=== PATIENT | male | born 1965 | race Two or more races ===

== ENCOUNTER 2018-08-09 15:15 | Emergency (ER) | payer OTHER ==
[2018-08-09 15:24] VITALS: TEMP 98.2; BMI 28.7
[2018-08-09] MEDS ORDERED: KETOROLAC TROMETHAMINE 30 MG/1 ML VIAL IM ONE (15:45)
[2018-08-09] MEDS ORDERED: KETOROLAC TROMETHAMINE 30 MG/1 ML VIAL ONE (15:47)
--- NOTE | 2018-08-09 16:05 | PDOC ---
History of Present Illness - General Chief Complaint: Pain, Acute Stated Complaint: RIGHT KNEE PAIN Time Seen by Provider: 08/09/18 15:20 - History of Present Illness Initial Comments: 08/09/18 16:00 The patient is a 53 year old male with a significant past medical history of GOUT and HTN who presents to the ED with 3 days of nonradiating right knee pain and swelling. Pt states that he has had multiple similar episodes in the past, consistent with his gout flares. Pt denies F/C. Denies any significant redness to the knee. The patient states he went to [facility] ED yesterday for his knee pain, got a toradol shot and percocet, and discharged home on colchicine but no pain medications. Pt states that today, his pain worsened, prompting him to come to the ER. Pt denies any recent falls or trauma. No numbness/weakness in the leg. Past History - Past Medical History Allergies/Adverse Reactions: Allergies Allergy/AdvReac Type Severity Reaction Status Date / Time No Known Allergies Allergy Verified 08/09/18 15:16 Home Medications: Ambulatory Orders Colchicine [Colcrys -] 0.6 mg PO BID PRN #10 tablet 06/29/18 Indomethacin 50 mg PO BID PRN #20 capsule 06/29/18 COPD: No HTN: Yes Hypercholesterolemia: Yes Other medical history: GOUT - Suicide/Smoking/Psychosocial Hx Smoking History: Never smoked Hx Alcohol Use: No Drug/Substance Use Hx: No Substance Use Type: None Review of Systems - Review of Systems Comments:: 08/09/18 16:01 "GENERAL/CONSTITUTIONAL: No fever/chill. No weakness. HEAD, EYES, EARS, NOSE AND THROAT: No change in vision. No ear pain or discharge. No sore throat. CARDIOVASCULAR: No chest pain, no shortness of breath, no loss of consciousness RESPIRATORY: No cough, wheezing, or hemoptysis. GASTROINTESTINAL: No nausea, vomiting, diarrhea or constipation. GENITOURINARY: No dysuria, frequency, or change in urination. MUSCULOSKELETAL: + right knee pain and swelling. No neck or back pain. SKIN: No rash NEUROLOGIC: No vertigo, no change in strength/sensation. ENDOCRINE: No increased thirst. No abnormal weight change. HEMATOLOGIC/LYMPHATIC: No anemia, easy bleeding, or history of blood clots. ALLERGIC/IMMUNOLOGIC: No hives or skin allergy. " *Physical Exam - Vital Signs Last Vital Signs Temp Pulse Resp BP Pulse Ox 98.2 F 85 18 167/110 H 99 08/09/18 15:16 08/09/18 15:16 08/09/18 15:16 08/09/18 15:16 08/09/18 15:16 - Physical Exam Comments: 08/09/18 16:02 GENERAL: Awake, alert, and fully oriented, in no acute distress. HEAD: No signs of trauma EYES: PERRLA, EOMI, sclera anicteric, conjunctiva clear ENT: Auricles normal inspection, hearing grossly normal, nares patent, oropharynx clear without exudates. Moist mucosa NECK: Nontender, no stepoffs, Normal ROM, supple, no lymphadenopathy, JVD, or masses LUNGS: Breath sounds equal, clear to auscultation bilaterally. No wheezes, and no crackles HEART: Regular rate and rhythm, normal S1 and S2, no murmurs, rubs or gallops ABDOMEN: Soft, nontender, normoactive bowel sounds. No guarding, no rebound. No masses EXTREMITIES: + R knee with mild effusion, pain with active ROM, no bony tenderness or deformity, No clubbing or cyanosis. No cords, erythema, or tenderness NEUROLOGICAL: Cranial nerves II through XII intact. 5/5 strength and sensation in all extremities, Normal speech, normal gait, normal cerebellar function SKIN: Warm, Dry, normal turgor, no rashes or lesions noted. Medical Decision Making - Medical Decision Making 08/09/18 16:02 53 M with R knee pain consistent with gout flare, presenting to ED for pain control. Pt with no evidence of septic arthritis. Afebrile with no erythema or warmth of the joint. I recommended to pt arthrocentesis for comfort and to r/o infectious process. However, pt declines, stating that this feels like his typical gout flares. - Pain control - F/u rheumatology Pt noted to be hypertensive in ED. Pt denies CP/SOB/headache. Admits to being non-compliant with his BP meds. No s/s hypertensive emergency. Pt is well appearing, Clinically stable for DC at this time. I discussed the physical exam findings, ancillary test results and final diagnoses with the patient. I answered all of the patient's questions. The patient was satisfied with the care received and felt comfortable with the discharge plan and treatment plan. The patient agrees to follow up with the primary care physician within 24-72 hours. *DC/Admit/Observation/Transfer Diagnosis at time of Disposition: Gout - Discharge Dispostion Disposition: HOME Condition at time of disposition: Stable - Referrals Referrals: Alisia Benson MD [Staff Physician] - - Patient Instructions Printed Discharge Instructions: DI for Gout Additional Instructions: Continue taking the indomethacin for your gout. If you have severe pain, you can take one percocet as needed every 6 hours. If you experience any worsening pain, swelling, redness, fevers, or any other concerning symptoms, return to the ER immediately. Otherwise, follow up with a nurse advocate to have your gout further treated. Call the number provided to make an appointment. You also need to have your blood pressure re-checked by your primary doctor, as it was slightly elevated today. Uncontrolled blood pressure can eventually lead to kidney disease, heart disease, other serious illness, disability, or even . - Post Discharge Activity - Attestations Physician Attestion: 08/09/18 16:08 I, Dr. Sotero Gramajo MD, attest that this document has been prepared under my direction and personally reviewed by me in its entirety. I further attest, that it accurately reflects all work, treatment, procedures and medical decision -making performed by me.
[2018-08-09 16:17] VITALS: BP 148/101; PULSE 73
== END 2018-08-09 16:17 | disposition home or self-care (01) ==
LOC: FER 15:15
PROC: 3E0233Z Introduction of Anti-inflammatory into Muscle, Percutaneous Approach (ICD-10-PCS; principal; 2018-08-09)
DX: M10.9 Gout, unspecified (principal); I10 Essential (primary) hypertension
CPT/HCPCS: 96372; 99281-25

== ENCOUNTER 2021-03-30 18:05 | Emergency (ER) | payer OTHER ==
[2021-03-30 18:23] VITALS: BP 150/97; PULSE 93; TEMP 98.9; BMI 29.4
[2021-03-30] MEDS ORDERED: KETOROLAC TROMETHAMINE 30 MG/1 ML VIAL IVPUSH ONE (18:26)
[2021-03-30] MEDS ORDERED: predniSONE 20 MG TABLET (UD) PO ONE (18:30)
[2021-03-30] MEDS ORDERED: KETOROLAC TROMETHAMINE 30 MG/1 ML VIAL ONE (18:34)
[2021-03-30] MEDS ORDERED: predniSONE 20 MG TABLET (UD) ONE ×2 (18:35→18:37)
== END 2021-03-30 18:50 | disposition home or self-care (01) ==
LOC: FER 18:05
PROC: 3E0333Z Introduction of Anti-inflammatory into Peripheral Vein, Percutaneous Approach (ICD-10-PCS; principal; 2021-03-30)
DX: M25.561 Pain in right knee (principal); M10.061 Idiopathic gout, right knee
CPT/HCPCS: 99284-25

== ENCOUNTER 2021-05-03 02:24 | Emergency (ER) | payer OTHER ==
[2021-05-03 02:34] VITALS: BP 169/104; PULSE 102; TEMP 99.8; BMI 31.0
[2021-05-03] MEDS ORDERED: DEXAMETHASONE SOD PHOSPHATE 10 MG/1 ML VIAL IM ONE (02:51)
[2021-05-03] MEDS ORDERED: DEXAMETHASONE SOD PHOSPHATE 10 MG/1 ML VIAL ONE (02:56)
== END 2021-05-03 03:21 | disposition home or self-care (01) ==
LOC: FER 02:24
PROC: 3E0233Z Introduction of Anti-inflammatory into Muscle, Percutaneous Approach (ICD-10-PCS; principal; 2021-05-03)
DX: M10.032 Idiopathic gout, left wrist (principal)
CPT/HCPCS: 99283-25; J1100

== ENCOUNTER 2021-08-16 12:31 | Emergency (ER) | payer OTHER ==
[2021-08-16 12:42] VITALS: BP 152/96; PULSE 110; TEMP 100.1; BMI 25.0
[2021-08-16] MEDS ORDERED: KETOROLAC TROMETHAMINE 30 MG/1 ML VIAL IM ONE (13:04)
[2021-08-16] MEDS ORDERED: predniSONE 20 MG TABLET (UD) PO ONE (13:06)
[2021-08-16] MEDS ORDERED: KETOROLAC TROMETHAMINE 30 MG/1 ML VIAL ONE (13:11)
[2021-08-16] MEDS ORDERED: predniSONE 20 MG TABLET (UD) ONE (13:11)
== END 2021-08-16 13:45 | disposition home or self-care (01) ==
LOC: FER 12:31
PROC: 3E023GC Introduction of Other Therapeutic Substance into Muscle, Percutaneous Approach (ICD-10-PCS; principal; 2021-08-16)
DX: M10.061 Idiopathic gout, right knee (principal)
CPT/HCPCS: 99284-25

== ENCOUNTER 2022-01-30 21:45 | Emergency (ER) | payer OTHER ==
[2022-01-30 21:57] VITALS: PULSE 82; TEMP 98.8; BMI 31.0
[2022-01-30] MEDS ORDERED: KETOROLAC TROMETHAMINE 60 MG/2 ML VIAL IM ONE (22:28)
[2022-01-30] MEDS ORDERED: KETOROLAC TROMETHAMINE 60 MG/2 ML VIAL ONE (22:30)
[2022-01-30 22:37] VITALS: BP 172/89
== END 2022-01-30 22:37 | disposition home or self-care (01) ==
LOC: FER 21:45
PROC: 3E0233Z Introduction of Anti-inflammatory into Muscle, Percutaneous Approach (ICD-10-PCS; principal; 2022-01-30)
DX: M10.9 Gout, unspecified (principal)
CPT/HCPCS: 99284-25

== ENCOUNTER 2023-12-05 19:58 | Emergency (ER) | payer OTHER ==
[2023-12-05 20:10] VITALS: RESP 18; BMI 31.0
[2023-12-05] MEDS ORDERED: MAG HYDROX/AL HYDROX/SIMETH 30 ML UNIT-DOSE CUP ONE (22:01)
[2023-12-05] MEDS ORDERED: FAMOTIDINE 20 MG/50 ML IVPB 20 MG/50 ML MG IVPB ONE (22:01)
[2023-12-05] MEDS ORDERED: ACETAMINOPHEN INJECTION 100 ML IVPB ONE (22:01)
[2023-12-05] MEDS: FAMOTIDINE 20 MG/50 ML IVPB 20 MG/50 ML MG IVPB ONE (22:24)
[2023-12-05] MEDS: ACETAMINOPHEN 1000 MG/100 ML BAG IVPB ONE (22:24)
[2023-12-05] MEDS: MAG HYDROX/AL HYDROX/SIMETH 30 ML UNIT-DOSE CUP PO ONE (22:24)
[2023-12-05] MEDS: SODIUM CHLORIDE 0.9% 500 ML INFUS.BAG IV ONE (22:24)
[2023-12-05 22:29] LABS: BASO % 0.3 % (0-2.0); EOS % 0.9 % (0-4.5); HEMATOCRIT 44.1 % (35.4-49); HEMOGLOBIN 15.8 GM/dL (11.7-16.9); LYMPH % 41.6 % (8-40); MCH 32.2 pg (25.7-33.7); MCHC 35.8 g/dl (32.0-35.9); MEAN CELL VOLUME 89.9 fl (80-96); MEAN PLT VOLUME 7.8 fl (7.5-11.1); NEUT % 49.2 % (42.8-82.8); PLATELET COUNT 233 10^3/uL (134-434); RBC 4.91 M/mm3 (4.00-5.60); RDW 13.1 % (11.9-15.9)
[2023-12-05 22:46] LABS: POTASSIUM 3.6 mmol/L (3.5-5.1)
[2023-12-05 22:48] LABS: BLOOD UREA NITROGEN 24.1 mg/dL (7-18)
[2023-12-05 22:49] LABS: CALCIUM 9.5 mg/dL (8.5-10.1)
[2023-12-05 22:51] LABS: CREATININE 1.2 mg/dL (0.55-1.3)
[2023-12-05 22:53] LABS: BILIRUBIN,TOTAL 0.6 mg/dL (0.2-1); TOT PROT 8.2 g/dl (6.4-8.2)
[2023-12-06 01:35] VITALS: BP 142/88; PULSE 89; TEMP 98.3
== END 2023-12-06 01:34 | disposition home or self-care (01) ==
LOC: JER 19:58
PROC: 3E033GC Introduction of Other Therapeutic Substance into Peripheral Vein, Percutaneous Approach (ICD-10-PCS; principal; 2023-12-05)
PROC: 3E030NZ Introduction of Analgesics, Hypnotics, Sedatives into Peripheral Vein, Open Approach (ICD-10-PCS; 2023-12-05)
DX: R10.816 Epigastric abdominal tenderness (principal); R11.2 Nausea with vomiting, unspecified; R00.0 Tachycardia, unspecified; K52.9 Noninfective gastroenteritis and colitis, unspecified; Z20.822 Contact with and (suspected) exposure to COVID-19
CPT/HCPCS: 0241U-QW; 36415; 71045-TC-FY; 71046-TC-FY; 74177-TC; 80053; 83690; 85025; 93005; 93010; 99285-25; J0131; Q9967

== ENCOUNTER 2024-03-24 07:36 | Day surgery (SDC) | payer OTHER ==
[2024-03-17 15:42] VITALS: BMI 30.4
[2024-03-24 08:53] VITALS: TEMP 97
[2024-03-24 09:14] VITALS: RESP 18
[2024-03-24 09:15] VITALS: BP 130/78; PULSE 70
== END 2024-03-24 09:35 | disposition home or self-care (01) ==
LOC: FASU-ENDO 07:36
PROVIDERS: ATTEND Internal Medicine Gastroenterology
PROC: 0DB98ZX Excision of Duodenum, Via Natural or Artificial Opening Endoscopic, Diagnostic (ICD-10-PCS; 2024-03-24)
PROC: 0DB68ZX Excision of Stomach, Via Natural or Artificial Opening Endoscopic, Diagnostic (ICD-10-PCS; 2024-03-24)
PROC: 0DBM8ZX Excision of Descending Colon, Via Natural or Artificial Opening Endoscopic, Diagnostic (ICD-10-PCS; principal; 2024-03-24 08:30)
DX: Z12.11 Encounter for screening for malignant neoplasm of colon (principal); D12.4 Benign neoplasm of descending colon; K29.50 Unspecified chronic gastritis without bleeding; B96.81 Helicobacter pylori [H. pylori] as the cause of diseases classified elsewhere; R10.13 Epigastric pain
CPT/HCPCS: 82962; 88305-TC; 88341-TC; 88342-TC

== ENCOUNTER 2025-05-08 13:20 | Emergency (ER) | payer OTHER ==
[2025-05-08 13:40] VITALS: BP 181/102; PULSE 102; RESP 18; TEMP 98.6; BMI 29.9
[2025-05-08] MEDS ORDERED: ACETAMINOPHEN 325 MG TABLET (FP) ONE (14:39)
[2025-05-08] MEDS ORDERED: predniSONE 20 MG TABLET (UD) ONE (14:40)
[2025-05-08] MEDS ORDERED: KETOROLAC TROMETHAMINE 30 MG/1 ML VIAL ONE (14:40)
[2025-05-08] MEDS: KETOROLAC TROMETHAMINE 30 MG/1 ML VIAL IM ONE (14:41)
[2025-05-08] MEDS: predniSONE 20 MG TABLET (UD) PO ONE (14:41)
[2025-05-08] MEDS: ACETAMINOPHEN 500 MG TABLET (FP) PO ONE (14:42)
[2025-05-08 18:53] LABS: HCV DIAGNOSTIC IN-HOUSE W/RFLX NON-REACTIVE (NONREACTIVE)
[2025-05-08 18:54] LABS: HIV INTERPRETATION NEGATIVE (NEGATIVE)
== END 2025-05-08 14:59 | disposition home or self-care (01) ==
LOC: FER 13:20
PROC: 3E0233Z Introduction of Anti-inflammatory into Muscle, Percutaneous Approach (ICD-10-PCS; principal; 2025-05-08)
DX: M10.9 Gout, unspecified (principal); M25.562 Pain in left knee; M25.462 Effusion, left knee
CPT/HCPCS: 36415; 86803; 87389; 99284-25